=== PATIENT | female | born 1985 | race Caucasian/White ===

== ENCOUNTER 2018-04-08 21:22 | Emergency (ER) | payer OTHER ==
[~2018-04-08] VITALS: Ht 165.1 cm; Wt 58.1 kg
[~2018-04-08 21:22] MED LIST: BCP'S; Esgic Tablet1 EACH PO; GABA300 PO; HYDACE5 PO; HYDACE7.5 PO; LO OVRAL; NAPR550 PO; Norco 5-325 Ta1 EACH PO; OXYACE5T; OXYACE5T PO; PENVK500 PO; PSEU120ER PO; RXNAPNA550 PO; RXPENVK250 PO; TOBR.3OPSO OP
[2018-04-08] MEDS ORDERED: Augmentin 875-1 EACH PO (22:36)
== END 2018-04-08 22:53 | disposition home or self-care (01) ==
LOC: ER 21:22
DX: S01.05XA Open bite of scalp, initial encounter (principal); S40.022A Contusion of left upper arm, initial encounter; S30.811A Abrasion of abdominal wall, initial encounter; W54.0XXA Bitten by dog, initial encounter; Z88.5 Allergy status to narcotic agent; Z79.899 Other long term (current) drug therapy
CPT/HCPCS: 12002; 90471; 90714; 99283-25

== ENCOUNTER 2020-04-28 09:41 | Day surgery (SDC) | payer OTHER ==
[2020-04-27 15:14] LABS: BASOPHILS ABSOLUTE AUTO 0.02 K/mm3 (0.00-0.23); BASOPHILS PERCENT AUTO 0 % (0-2); EOSINOPHILS ABSOLUTE AUTO 0.05 K/mm3 (0.00-0.68); EOSINOPHILS PERCENT AUTO 1 % (0-6); Hematocrit 40.4 % (33.0-51.0); Hemoglobin 13.4 g/dL (11.5-16.0); IMMATURE GRAN PERCENT AUTO 0 % (0-1); LYMPHOCYTES ABSOLUTE AUTO 1.76 K/mm3 (0.84-5.20); LYMPHOCYTES PERCENT AUTO 28 % (21-46); MONOCYTES ABSOLUTE AUTO 0.49 K/mm3 (0.16-1.47); MONOCYTES PERCENT AUTO 8 % (4-13); Mean Corpuscular HGB 31.5 pg (26.0-34.0); Mean Corpuscular HGB Conc 33.2 g/dL (31.5-36.5); Mean Corpuscular Volume 95 fL (80-100); Mean Platelet Volume 8.4 fL (9.1-12.4); NEUTROPHILS ABSOLUTE AUTO 3.87 K/mm3 (1.96-9.15); NEUTROPHILS PERCENT AUTO 63 % (41-73); Platelet Count 382 K/mm3 (150-400); RDW Coefficient Variation 12.4 % (11.7-14.2); RDW Standard Deviation 43.5 fL (35.1-46.3); Red Blood Cell Count 4.25 M/mm3 (3.80-5.20); White Blood Cell Count 6.19 K/mm3 (4.00-11.30)
[~2020-04-28] VITALS: Ht 165.1 cm; Wt 52.9 kg
[~2020-04-28 09:41] MED LIST changes: +Augmentin 875-1 EACH PO; +IBUP800 PO; +LOESTRIN FE; +TYLENOL W/CODEINE PO
[2020-04-28] MEDS ORDERED: MEDR10 PO (10:10)
--- NOTE | 2020-04-28 10:53 | NUR ---
History, Chart, Medications and Allergies reviewed before start of procedure. Lungs clear T/O to Auscultation. Patient confirms NPO status and agrees with scheduled surgery. Pre-Op teaching done. Pt verbalizes understanding. Patient reports completing Chlorhexadine shower X2 prior to admission to hospital.
--- NOTE | 2020-04-28 17:31 | NUR ---
SHIFT SUMMARY PT A&OX4, VSS/RA, S/P LUKE LAP HYSTER, 5 DERMABOND C/D/I. PAIN MANAGED WITH 10 MG PERCOCET AND TORADOL; KPAD. DENIES N&V, HARLAN REG ADULT DIET. IVF @ 125 MLS/HR AND ABX PER EMAR. FROST PATENT & DRAINING YELLOW URINE, STAT LOCK ON, OFF FLOOR. WILL REPORT TO ONCOMING NOC RN.
[2020-04-29 04:37] LABS: BASOPHILS ABSOLUTE AUTO 0.01 K/mm3 (0.00-0.23); BASOPHILS PERCENT AUTO 0 % (0-2); EOSINOPHILS PERCENT AUTO 0 % (0-6); Hematocrit 32.9 % (33.0-51.0); Hemoglobin 10.9 g/dL (11.5-16.0); IMMATURE GRAN ABSOLUTE AUTO 0.03 K/mm3 (0.00-0.10); IMMATURE GRAN PERCENT AUTO 0 % (0-1); LYMPHOCYTES ABSOLUTE AUTO 1.74 K/mm3 (0.84-5.20); LYMPHOCYTES PERCENT AUTO 15 % (21-46); MONOCYTES ABSOLUTE AUTO 0.75 K/mm3 (0.16-1.47); MONOCYTES PERCENT AUTO 7 % (4-13); Mean Corpuscular HGB 31.4 pg (26.0-34.0); Mean Corpuscular HGB Conc 33.1 g/dL (31.5-36.5); Mean Corpuscular Volume 95 fL (80-100); Mean Platelet Volume 8.7 fL (9.1-12.4); NEUTROPHILS ABSOLUTE AUTO 8.86 K/mm3 (1.96-9.15); NEUTROPHILS PERCENT AUTO 78 % (41-73); Platelet Count 302 K/mm3 (150-400); RDW Coefficient Variation 12.4 % (11.7-14.2); Red Blood Cell Count 3.47 M/mm3 (3.80-5.20); White Blood Cell Count 11.39 K/mm3 (4.00-11.30)
--- NOTE | 2020-04-29 06:40 | NUR ---
SHIFT SUMMARY: JIGNESH IS A&OX4. VSS, NO ACUTE EVENTS OVERNIGHT. SHE DID HAVE A SINGULAR EPISODE OF LOW BLOOD PRESSURE WHEN SHE HAD JUST AWOKEN FROM [place]. SHE DOES REPORT THAT SHE HAS OCCASIONAL EPISDOES OF DIZZINESS AT HOME AND WONDERS IF THIS IS DUE TO LOW BLOOD PRESSURE. SHE IS INDEPENDENT IN THE ROOM. IV TO R AC PATENT, SALINE LOCKED. SHE HAS HAD DIFFICULTIES WITH NAUSEA AND ONE EPISODE OF EMESIS. SHE REPORTS RELIEF WITH THE ZOFRAN AND PHENERGAN. SHE HAS REQUIRED PERCOCET AND MORPHINE FOR PAIN CONTROL. FROST DISCONTINUED THIS MORNING. SHE IS LYING IN BED WITH HER CALL LIGHT IN REACH. WILL REPORT TO DAY SHIFT RN.
--- NOTE | 2020-04-29 08:52 | NUR ---
04/29/20 0852 Roxane Schwartz VERIFICATIONS: EDIT CHART.
--- NOTE | 2020-04-29 12:00 | NUR ---
SHIFT SUMMARY PT A&OX4, VSS, LEFT FLOOR VIA WC WITH RN, TO GO HOME WITH DAD, WITH ALL PERSONAL POSSESSIONS, INCLUDING DC PACKET AND 1 NARC SCRIPT. DC INSTRUCTIONS PROVIDED. PT REP UNDERSTANDING THOSE INSTRUCTIONS INCLUDING NO LIFTING >10 LBS, NO PUSHING/PULLING/LIFTING, SHORT FREQUENT AMBULATION W/REST PERIODS, OK TO SHOWER, NO TUB/JACUZZI, PAIN MANAGEMENT MEDS, N&V MED. IV DC'D.
[2020-04-29] MEDS ORDERED: Percocet 5-3251 EACH PO (13:27)
[2020-04-29] MEDS ORDERED: IBUP800 PO (13:28)
[2020-04-29] MEDS ORDERED: ESTR2 PO (13:29)
[2020-04-29] MEDS ORDERED: PROM25 PO (13:29)
== END 2020-04-29 13:49 | disposition home or self-care (01) ==
LOC: ORSCMMR 09:41 → ORD 11:00 → ORSCMMR 11:00 → SURS 13:49 → ORSCMMR 04-29 13:49
PROVIDERS: Obstetrics & Gynecology
PROC: 0UT94ZZ Resection of Uterus, Percutaneous Endoscopic Approach (ICD-10-PCS; principal; 2020-04-28 11:00)
PROC: 0UT24ZZ Resection of Bilateral Ovaries, Percutaneous Endoscopic Approach (ICD-10-PCS; principal; 2020-04-28 11:00)
PROC: 0UT74ZZ Resection of Bilateral Fallopian Tubes, Percutaneous Endoscopic Approach (ICD-10-PCS; principal; 2020-04-28 11:00)
PROC: 8E0W4CZ Robotic Assisted Procedure of Trunk Region, Percutaneous Endoscopic Approach (ICD-10-PCS; principal; 2020-04-28 11:00)
DX: N92.0 Excessive and frequent menstruation with regular cycle (principal); N80.9 Endometriosis, unspecified; R10.2 Pelvic and perineal pain; N94.6 Dysmenorrhea, unspecified; N94.10 Unspecified dyspareunia; E28.2 Polycystic ovarian syndrome; Z79.899 Other long term (current) drug therapy
CPT/HCPCS: 58571; S2900; 36415; 84702; 85025; 86850; 86900; 86901; 88307; A9270; J0690; J1100; J1885; J2250; J2270; J2405; J2550; J2704; J3010; J7120

== ENCOUNTER 2022-06-09 16:04 | Emergency (ER) | payer OTHER ==
[~2022-06-09] VITALS: Ht 170.2 cm; Wt 54.4 kg
[~2022-06-09 16:04] MED LIST changes: +ESTR2 PO; +MEDR10 PO; +PROM25 PO; +Percocet 5-3251 EACH PO
[2022-06-09] MEDS ORDERED: Cyclobenzaprine5 MG (16:24)
[2022-06-09] MEDS ORDERED: RIZATRIPTAN5 MG (16:25)
[2022-06-09] MEDS ORDERED: NORTRIPTYLINE H1012 (16:26)
[2022-06-09 16:52] LABS: BASOPHILS ABSOLUTE AUTO 0.03 K/mm3 (0.00-0.23); BASOPHILS PERCENT AUTO 1 % (0-2); EOSINOPHILS ABSOLUTE AUTO 0.09 K/mm3 (0.00-0.68); EOSINOPHILS PERCENT AUTO 1 % (0-6); Hemoglobin 11.5 g/dL (11.5-16.0); IMMATURE GRAN ABSOLUTE AUTO 0.01 K/mm3 (0.00-0.10); IMMATURE GRAN PERCENT AUTO 0 % (0-1); LYMPHOCYTES ABSOLUTE AUTO 1.87 K/mm3 (0.84-5.20); LYMPHOCYTES PERCENT AUTO 29 % (21-46); MONOCYTES ABSOLUTE AUTO 0.36 K/mm3 (0.16-1.47); MONOCYTES PERCENT AUTO 6 % (4-13); Mean Corpuscular HGB Conc 33.8 g/dL (31.5-36.5); Mean Corpuscular Volume 92 fL (80-100); Mean Platelet Volume 8.7 fL (9.1-12.4); NEUTROPHILS ABSOLUTE AUTO 4.14 K/mm3 (1.96-9.15); NEUTROPHILS PERCENT AUTO 64 % (41-73); Platelet Count 296 K/mm3 (150-400); RDW Standard Deviation 47.4 fL (35.1-46.3); Red Blood Cell Count 3.71 M/mm3 (3.80-5.20)
[2022-06-09 17:21] LABS: Bun/Creatinine Ratio 12.7 (12.0-20.0); Calcium, Blood 8.5 mg/dL (8.5-10.1); Creatinine, Blood 0.71 mg/dL (0.40-1.00); Potassium, Blood 3.7 mmol/L (3.5-5.5)
== END 2022-06-09 19:06 | disposition home or self-care (01) ==
LOC: ER 16:04
PROVIDERS: Emergency Medicine
DX: R56.9 Unspecified convulsions (principal); Z88.5 Allergy status to narcotic agent; Z79.899 Other long term (current) drug therapy
CPT/HCPCS: 70450; 80048; 85025; J7030